=== PATIENT | male | born 1990 | race Caucasian/White ===

== ENCOUNTER 2016-04-18 11:17 | Emergency (ER) | payer OTHER ==
[~2016-04-18] VITALS: Ht 182.9 cm; Wt 86.2 kg
[~2016-04-18 11:17] MED LIST: ACULAR 0.5%5 ML OPH; POLYTRIM O200 GTT/BO OPH
--- NOTE | 2016-04-18 11:43 | ED AMS/SEIZURE/WEAK/DIZZY ---
History of Present Illness General Chief Complaint: Seizure Stated Complaint: PER DAD-HAD SEIZURE THIS MORNING AND FELL Source: patient, family, old records Exam Limitations: no limitations Vital Signs & Intake/Output Vital Signs & Intake/Output Vital Signs Date Time Temp Pulse Resp B/P Pulse O2 O2 Flow FiO2 Ox Delivery Rate 04/18 1342 98.7 63 18 95/58 97 04/18 1123 98.1 75 16 107/71 97 Room Air Allergies Coded Allergies: NO KNOWN ALLERGIES (04/18/16) Reconcile Medications Desmopressin Acetate 0.2 MG TABLET 1 TAB PO BID PANHYPOPITUITARISM (Reported) Hydrocortisone 5 MG TABLET 1.5 TAB PO DAILY PANHYPOPITUITARISM (Reported) Hydrocortisone (Cortef) 5 MG TABLET 0.5 TAB PO 1200 PANHYPOPITUITARISM ( Reported) Hydrocortisone (Cortef) 5 MG TABLET 1 TAB PO 1500 PANHYPOPITUITARISM ( Reported) Lamotrigine 200 MG TABLET 1.5 TAB PO BID EPILEPSY (Reported) Levothyroxine Sodium 100 MCG TABLET 1 TAB PO DAILY AC PANHYPOPITUITARISM ( Reported) Ondansetron (Zofran Odt) 4 MG TAB.RAPDIS 1 TAB SL TID PRN NAUSEA Testosterone Cypionate 200 MG/ML VIAL 1 ML IM Q2W PANHYPOPITUITARISM ( Reported) Verapamil HCl (Verapamil ER) 120 MG TABLET.ER 1 TAB PO BID CLUSTER HEADACHE ( Reported) Triage Note: PT TO ED S/P SEIZURE, WITNESSED BY GF. HX OF SAME, SEEN BY NEUROLOGIST DR PERRIN. PT ROLLED OFF BED AND FACE DOWN TO FLOOR. ARRIVES WITH SWELLING AND REDNESS TO RIGHT SIDE OF FACE. AAOX3 ON ARRIVAL. 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 NAUSEA HAS SUBSIDED AT THIS TIME. Triage Nurses Notes Reviewed? 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 According to the patient and his father there was no loss of consciousness afterwards she was postictal however that is normal for him. On arrival patient 's complaining of a right-sided headache for which she is not taken anything. He attempted to take Advil this morning, became nauseous and vomited 1. he still feels nauseous. The headache was gradual onset since aching throbbing to the right side nonradiating. He denies any other injury there is no neck or back pain no arm or leg injury. His last seizure was in January. He denies any dental trauma he did not bite his tongue area the patient presents with swelling to the right side of his face and laceration to his right eyebrow.there is no other trauma to that is approximately 3 feet off the ground per father there's been no changes in mental status otherwise. (JOSELITO JOYA) Past History Travel History Traveled to [place] past 21 day No Medical History Any Pertinent Medical History? see below for history Neurological: EPILEPSY EENT: NONE Cardiovascular: NONE Respiratory: NONE Gastrointestinal: NONE Hepatic: NONE Renal: NONE Musculoskeletal: NONE Psychiatric: NONE Endocrine: HYPERPITUITARY Surgical History Surgical History: PITUITARY SURGERY CYST REMOVED FROM NOSE Psychosocial History What is your primary language [place] Citizen Tobacco Use: Never used ETOH Use: occasional use Illicit Drug Use: denies illicit drug use Family History Hx Contributory? No (JOSELITO JOYA) Review of Systems Review of Systems Constitutional: Reports: see HPI. All Other Systems: Reviewed and Negative Comments Review of systems: See HPI, All other systems negative. Constitutional, no chills no fever, no malaise HEENT: No visual changes no sore throat no congestion, no ear pain Cardiovascular: No chest pain , no palpitation Skin, n no rashes, no change in skin Respiratory: No dyspnea no cough no sputum no hemoptysis GI: nausea vomiting, no diarrhea, no bloating/constipation : No dysuria Muscle skeletal: No joint pain, no joint swelling, no back pain, no neck pain, Neurologic: No numbness no confusion, o headache Psych: No stress Heme/endocrine: No bruising no bleeding Immunology: No lymphadenopathy (JOSELITO JOYA) Physical Exam Physical Exam General Appearance: well developed/nourished, no apparent distress, alert, awake Comments: Well-developed well-nourished person in no acute distress Head/Face:, There is a superficial abrasion noted to the right lateral eyebrow as well as a 2 cm superficial laceration noted to the inferior aspect of the right lateral eyebrow mild tenderness to palpation the rest of the scalp and face are atraumatic nontender no maxillary/frontal sinus tenderness, no facial swelling no raccoon eyes no bains signs there is moderate swelling over the right fore head and orbit Eyes: PERRL, EOMI, no conjunctival injection. No nystagmus no evidence of entrapment no conjunctival hemorrhage Ear:External auditory canal and Tympanic membranes clear, no erythema, no FB. No hemotympanum Nose: atraumatic.Normal inspection: No bleeding, no septal hematoma Throat: Moist mucous membranes.Pharynx normal. No pharyngeal erythema/exudate seen. No stridor/drooling or assymetry. No swelling or edema. Neck: Supple, no midline or paracervical tenderness FROM Back: Nontender, no CVA tenderness. Full range of motion Cardiovascular: Regular rate and rhythms no murmurs rubs Respiratory: Chest nontender No respiratory distress. Patient speaking in full complete sentences. Breath sounds clear to auscultation bilaterally: NO W/R/R Abdomen: Soft, nontender Extremity: No edema, full range of motion of extremities, normal and equal pulses bilaterally, 5 out of 5 strength noted to bilateral upper and lower extremities Neuro: Alert oriented x3, motor sensory normal, cranial nerves II through XII grossly intact. There were no obvious focal neurologic abnormalities. Skin: No appreciable rash on exposed skin, skin is warm and dry. Psych: Mood and affect is normal, memory and judgment is normal. Core Measures ACS in differential dx? No CVA/TIA Diagnosis: No Severe Sepsis Present: No Septic Shock Present: No (JOSELITO JOYA) Progress Differential Diagnosis: intracranial mass/tumor, postural hypotension, post- traumatic vertigo, seizure disorder, subarachnoid Hem. Plan of Care: Orders Procedure Date/time Status CT HEAD WO IV CONTRAST 04/18 1156 Active Patient is medicated with ODT Zofran however vomited in CAT scan IV Zofran 4 mg, Tylenol IV The patient's wounds were thoroughly irrigated with normal saline and Betadine peroxide. The laceration was closed with 5 sutures by the PA student under my direct supervision patient tolerated procedure well bacitracin sterile dressing was applied tetanus IM ordered discussed the patient is family at length his CAT scan results need for brain rest supportive care close follow-up with primary care prescription for Zofran was called and discussed with him the possibility of foreign body not seen on examination still exist to return at anytime sooner with any concerns or signs of infection he will return in 5-7 days for suture removal they feel comfortable with plan patient denies nausea on repeat eval, tolerating by mouth here ambulatory with steady gait patient and his family feel comfortable with going home at this time (JOSELITO JOYA) Diagnostic Imaging: Viewed by Me: CT Scan. Discussed w/RAD: CT Scan. Initial ED EKG: none (JOSELITO JOYA) Departure Departure Time of Disposition: 1334 Disposition: HOME OR SELF CARE Condition: Stable Clinical Impression Primary Impression: Seizure disorder Secondary Impressions: Facial laceration, Minor head injury Referrals: HERLINDA HAYES,GREGOR Craft (PCP/Family) Additional Instructions: Zofran for nausea. Tylenol Motrin every 4-6 hours as needed for pain ice packs to help with swelling. Return to emergency room in 5-7 days for suture removal. The possibility of foreign body not seen on examination still exists, return anytime sooner if any concerns or signs of infection: Redness warmth swelling discharge fever or chills. Departure Forms: Customer Survey General Discharge Information Prescriptions: Current Visit Scripts Ondansetron (Zofran Odt) 1 TAB SL TID PRN NAUSEA #15 TAB (JOSELITO JOYA) PA/GREENHOUSE TRANSPLANTER Co-Sign Statement Statement: ED Attending supervision documentation- [] I saw and evaluated the patient. I have also reviewed all the pertinent lab results and diagnostic results. I agree with the findings and the plan of care as documented in the PA's/GREENHOUSE TRANSPLANTER's documentation. [X] I have reviewed the ED Record and agree with the PA's/GREENHOUSE TRANSPLANTER's documentation. [] Additions or exceptions (if any) to the PAs/GREENHOUSE TRANSPLANTER's note and plan are summarized below: [] (SHERIF CATES DO) Procedures Laceration/Wound Repair Laceration/Wound Repair: Wound Location: face Wound's Depth, Shape: linear, superficial Wound Length (cm): 2 Wound Explored: clean, no foreign body removed, irrigated extensively Irrigated w/ Saline (ccs): 200 Betadine Prep? Yes Anesthesia: 1% lidocaine Volume Anesthetic (ccs): 5 Wound Repaired With: sutures Suture Size/Type: 5:0 Number of Sutures: 5 Tetanus Status: not up to date (CONCEPCION WIGGINS,JOSELITO)
[2016-04-18] MEDS ORDERED: DESMOPRESSIN A0.2 M1 PO (12:12)
[2016-04-18] MEDS ORDERED: HYDROCORTISONE5 M1 PO (12:15)
[2016-04-18] MEDS ORDERED: CORTEF5 M1 PO ×2 (12:17)
[2016-04-18] MEDS ORDERED: LAMOTRIGINE200 M2 PO (12:18)
[2016-04-18] MEDS ORDERED: LEVOTHYROXINE100 MC1 PO (12:19)
[2016-04-18] MEDS ORDERED: TESTOSTERO200 MG/1 M IM (12:19)
[2016-04-18] MEDS ORDERED: VERAPAMIL ER120 M1 PO (12:20)
--- NOTE | 2016-04-18 12:58 | CT SCAN REPORT ---
EXAMINATION: CT HEAD WITHOUT CONTRAST CLINICAL INFORMATION: Seizure. Fall. Head trauma. Nausea and vomiting COMPARISON: None. TECHNIQUE: Multidetector CT examination of the head is performed without contrast. Technologist indicates that the patient vomited during the scan and the skin was repeated DLP: 1058 mGy-cm FINDINGS: There is no evidence of a recent intracranial hemorrhage or extra-axial collection. The midline structures are nondisplaced. The fourth ventricle is midline. The basilar cisterns around the brainstem are well visualized. The third ventricle is not displaced. The lateral ventricles are not dilated. There is coarse calcification associated with the sella and suprasellar region. There is no large associated soft tissue mass. There is no evidence of an intra-axial mass. There are no suspicious focal areas of abnormal brain attenuation. The bowie-white interface is within normal limits. There is no evidence of acute territorial infarct. There is a chronic appearing deformity of the right side of the frontal calvarium. This could be related to previous surgery. Coarse calcification in the anterior aspect of the right middle cranial fossa. There is no acute fracture of the right orbit. There is extensive soft tissue swelling over the right orbital region. IMPRESSION: 1. There is no evidence of a recent intracranial hemorrhage. 2. No acute infarct. 3. Coarse calcifications in the sella/suprasellar region. This is of uncertain etiology or significance. There are findings which suggest abnormality the right frontal calvarium. Correlate with remote surgery. I suspect there has been previous imaging elsewhere. Direct comparison recommended. Soft tissue injury around the right orbit. No disruption of the globe or intraorbital hematoma. I received a second opinion from Dr. Esquivel of the neuroradiology service who agrees
[2016-04-18] MEDS ORDERED: ZOFRAN ODT4 M1 SL (13:35)
[2016-04-18 13:42] VITALS: BP 95/58
== END 2016-04-18 13:46 ==
LOC: ERH 11:17
DX: G40.909 Epilepsy, unspecified, not intractable, without status epilepticus (principal); S01.81XA Laceration without foreign body of other part of head, initial encounter; S09.90XA Unspecified injury of head, initial encounter; W06.XXXA Fall from bed, initial encounter
CPT/HCPCS: 96365; 96375; J0131; J2405; J3101

== ENCOUNTER 2017-02-26 14:23 | Emergency (ER) | payer OTHER ==
[~2017-02-26] VITALS: Ht 180.3 cm; Wt 88.5 kg
[~2017-02-26 14:23] MED LIST changes: +CORTEF5 M1 PO; +DESMOPRESSIN A0.2 M1 PO; +HYDROCORTISONE5 M1 PO; +LAMOTRIGINE200 M2 PO; +LEVOTHYROXINE100 MC1 PO; +TESTOSTERO200 MG/1 M IM; +VERAPAMIL ER120 M1 PO; +ZOFRAN ODT4 M1 SL
[2017-02-26 14:30] VITALS: BP 93/74
== END 2017-02-26 15:38 | disposition admitted as inpatient to this hospital (09) ==
LOC: ERH 14:23
DX: R56.9 Unspecified convulsions (principal); R05 Cough; R68.89 Other general symptoms and signs; R51 Headache
CPT/HCPCS: 87804; 87804-59